=== PATIENT | male | born 1985 | race Caucasian/White ===

== ENCOUNTER 2018-12-02 12:04 | Emergency (ER) | payer OTHER ==
[2018-12-02] MEDS ORDERED: BUPIVACAINE 0.5% PF 10 ML VIAL SUBQ STA (12:55)
--- NOTE | 2018-12-02 13:38 | ED Physician Documentation ---
PD HPI UPPER EXT INJURY - Stated complaint Stated Complaint: LT HAND LAC - Chief complaint Chief Complaint: Laceration - History obtained from History obtained from: Patient - History of Present Illness Location: Left, Finger (index finger) Type of injury: Other (chainsaw vs fiinger at work) Where injury occurred: Work Timing - onset: How many hours ago (1) Timing - duration: Hours (1) Timing - details: Abrupt onset Pain level max: 10 Pain level now: 10 Improved by: Rest, Ice, Immobilization Worsened by: Moving, Palpating Associated symptoms: Swelling. No: Weakness, Numbness, Tingling Contributing factors: No: Anticoagulated Similar symptoms before: Has not had sx before Recently seen: Not recently seen - Additonal information Additional information: Td 2017. pt is right handed Review of Systems Constitutional: denies: Fever, Chills Respiratory: denies: Cough GI: denies: Vomiting, Diarrhea Skin: denies: Rash Musculoskeletal: denies: Neck pain, Back pain Neurologic: denies: Headache PD PAST MEDICAL HISTORY - Past Medical History Past Medical History: Yes Respiratory: Asthma - Past Surgical History Past Surgical History: Yes Ortho: ACL reconstruction, Shoulder arthroplasty - Present Medications Home Medications: Ambulatory Orders Medication Instructions Recorded Confirmed Clindamycin HCl [Clindamycin 300MG 300 mg PO Q6H #28 capsule 12/02/18 CAP] - Allergies Allergies/Adverse Reactions: Allergies Allergy/AdvReac Type Severity Reaction Status Date / Time amoxicillin [Amoxicillin] Allergy Mild Rash Verified 12/02/18 12:12 fluticasone propionate * Allergy Mild Rash Verified 12/02/18 12:12 [From Advair Diskus] Penicillins Allergy Mild Rash Verified 12/02/18 12:12 salmeterol xinafoate * Allergy Mild Rash Verified 12/02/18 12:12 [From Advair Diskus] sulfamethoxazole Allergy Unknown Verified 12/02/18 12:12 [From Bactrim] trimethoprim [From Bactrim] Allergy Unknown Verified 12/02/18 12:12 - Social History Does the pt smoke?: Yes Smoking Status: Current every day smoker Does the pt drink ETOH?: Yes Does the pt have substance abuse?: No - Immunizations Immunizations are current?: Yes - POLST Patient has POLST: No PD ED PE NORMAL - Vitals Vital signs reviewed: Yes - General General: Alert and oriented X 3, No acute distress, Well developed/nourished - HEENT HEENT: PERRL, Moist mucous membranes - Neck Neck: Supple, no meningeal sign - Cardiac Cardiac: RRR, Strong equal pulses - Derm Derm: Warm and dry - Extremities Extremities: Other (L index finger laceration over dorsum of prox phalanx. NVI. 1cm x3cm area of missing skin. tendon intact.) - Neuro Neuro: Alert and oriented X 3 - Psych Psych: Normal mood, Normal affect Results - Vitals Vitals: Vital Signs - 24 hr 12/02/18 12/02/18 12:10 15:26 Temperature 37.1 C 36.6 C Heart Rate 79 94 Respiratory 18 18 Rate Blood Pressure 149/94 H 140/100 H O2 Saturation 98 99 Oxygen O2 Source Room air - Rads (name of study) L finger xray Radiology: Prelim report reviewed, EMP read contemporaneously, See rad report (Negative left index finger. ) PD MEDICAL DECISION MAKING - ED course Complexity details: reviewed results, re-evaluated patient, considered differential, d/w patient, d/w family ED course: 33-year-old male with what is essentially a deep abrasion to the dorsal aspect of the proximal phalanx of the left first digit. There is no skin to suture together. We will allow this to heal by secondary intention. The wound was irrigated with 750 mL's of NS. Tendon is intact. Antibiotic ointment placed, nonstick dressing and tube gauze. We will have him follow-up with his doctor in 3 days for wound check. Will place on antibiotics as well. Tetanus is up-to-date. Warnings of infection and instructions on wound care given at bedside. Also counseled on how to minimize scarring. Patient counseled regarding signs and symptoms for which I believe and urgent re-evaluation would be necessary. Patient with good understanding of and agreement to plan and is comfortable going home at this time This document was made in part using voice recognition software. While efforts are made to proofread this document, sound alike and grammatical errors may occur. Departure - Departure Disposition: 01 Home, Self Care Clinical Impression: Finger laceration Qualifiers: Encounter type: initial encounter Finger: index finger Damage to nail status: without damage Foreign body presence: without foreign body Laterality: left Qualified Code(s): S61.211A - Laceration without foreign body of left index finger without damage to nail, initial encounter Condition: Good Instructions: ED Laceration Hand Follow-Up: your,doctor in 3 days for wound check [Other] Prescriptions: Clindamycin HCl [Clindamycin 300MG CAP] 300 mg PO Q6H #28 capsule Comments: Return if you worsen. Take all antibiotics until gone. Return if you develop redness, swelling, or drainage from the wound. Keep the wound clean. Discharge Date/Time: 12/02/18 15:31
--- NOTE | 2018-12-02 14:25 | XRAY Report ---
Reason: L index finger vs chainsaw Procedure Date: 12/02/2018 Accession Number: [id number] / [id number] Procedure: XR - Finger(s) LT CPT Code: FULL RESULT: EXAM: LEFT INDEX DIGIT RADIOGRAPHY EXAM DATE: 12/02/2018 01:51 PM. CLINICAL HISTORY: L index finger vs chainsaw. COMPARISON: None available. TECHNIQUE: 3 views. FINDINGS: Bones: Normal. No fracture or bone lesion. Joints: Normal. No subluxations. Soft Tissues: No radiopaque foreign bodies. IMPRESSION: Negative left index finger. RADIA
[2018-12-02] MEDS ORDERED: BACITRACIN OINT TOP STA (15:01)
[2018-12-02] MEDS ORDERED: CLINDAMYCIN 150 MG CAPSULE PO STA (15:02)
[2018-12-02 15:27] VITALS: BP 140/100
== END 2018-12-02 15:31 | disposition home or self-care (01) ==
LOC: ED 12:04
DX: S61.211A Laceration without foreign body of left index finger without damage to nail, initial encounter (principal); S60.411A Abrasion of left index finger, initial encounter; W29.3XXA Contact with powered garden and outdoor hand tools and machinery, initial encounter; Y99.0 Civilian activity done for income or pay; F17.200 Nicotine dependence, unspecified, uncomplicated
CPT/HCPCS: 73140; 99283; A9270

== ENCOUNTER 2019-05-30 13:02 | Outpatient (CLI) | payer MEDICAID | END 2019-05-30 13:03 | disposition critical access hospital (66) | LOC: EMS 13:02 | PROVIDERS: ATTEND Surgery | DX: R55 Syncope and collapse (principal); R53.1 Weakness | CPT/HCPCS: A0425; A0429; A0999 ==

== ENCOUNTER 2019-05-30 13:21 | Inpatient (IN) | payer MEDICAID ==
--- NOTE | 2019-05-30 13:36 | ED Physician Documentation ---
PD HPI SYNCOPE - Stated complaint Stated Complaint: SYNCOPE - Chief complaint Chief Complaint: Neuro - History obtained from History obtained from: Patient, EMS (34-year-old gentleman presents by ambulance for syncopal episode. He is quite somnolent so history is limited. Reportedly had a syncopal episode and was helped to the ground without injury and was unconscious for about a minute. This was may be 6 hours after using some methamphetamines which he smokes, never injects, "needles are garbage" he says.) Review of Systems Unable to obtain: AMS PD PAST MEDICAL HISTORY - Past Medical History Respiratory: Asthma - Past Surgical History Past Surgical History: Yes Ortho: ACL reconstruction, Shoulder arthroplasty - Present Medications Home Medications: Ambulatory Orders Medication Instructions Recorded Confirmed Clindamycin HCl [Clindamycin 300MG 300 mg PO Q6H #28 capsule 12/02/18 CAP] - Allergies Allergies/Adverse Reactions: Allergies Allergy/AdvReac Type Severity Reaction Status Date / Time amoxicillin [Amoxicillin] Allergy Mild Rash Verified 05/30/19 13:30 fluticasone propionate * Allergy Mild Rash Verified 05/30/19 13:30 [From Advair Diskus] Penicillins Allergy Mild Rash Verified 05/30/19 13:30 salmeterol xinafoate * Allergy Mild Rash Verified 05/30/19 13:30 [From Advair Diskus] sulfamethoxazole Allergy Unknown Verified 05/30/19 13:30 [From Bactrim] trimethoprim [From Bactrim] Allergy Unknown Verified 05/30/19 13:30 - Social History Does the pt smoke?: Yes Smoking Status: Current every day smoker Does the pt drink ETOH?: Yes Does the pt have substance abuse?: No - Immunizations Immunizations are current?: Yes - POLST Patient has POLST: No PD ED PE NORMAL - Vitals Vital signs reviewed: Yes - General General: Other (Quite somnolent, does not arouse to voice, basically have to shake him to wake him up.) - HEENT HEENT: Other (Small pupils) - Neck Neck: Supple, no meningeal sign, No bony TTP - Cardiac Cardiac: Other (Tachycardic but regular without murmur) - Respiratory Respiratory: No respiratory distress, Clear bilaterally - Extremities Extremities: Other (The right leg is quite swollen and tender, it seems to be emanating from a abrasion or little trauma on the anterior tamayo. He has multiple picked at wounds. The major joints seem to have painless full range of motion. The right leg is quite warm.) - Neuro Eye Opening: To Pain Motor: Obeys Commands Verbal: Confused GCS Score: 12 Results - Vitals Vitals: Vital Signs - 24 hr 05/30/19 05/30/19 05/30/19 13:24 14:08 16:00 Temperature 38.2 C H Heart Rate 109 H 103 H 75 Respiratory 18 15 16 Rate Blood Pressure 142/74 H 121/63 123/68 O2 Saturation 95 96 98 Oxygen O2 Source Room air - EKG (time done) 1400 Rate: Rate (enter#) (107) Rhythm: Sinus tachycardia [place]: Normal Intervals: Normal MI QRS: Normal Ischemia: Normal ST segments Computer interpretation: Agree with computer - Labs Labs: Laboratory Tests 05/30/19 05/30/19 05/30/19 13:50 13:50 13:50 WBC 13.2 H RBC 3.90 L Hgb 11.8 L Hct 36.8 L MCV 94.4 H MCH 30.3 MCHC 32.1 RDW 12.7 Plt Count 262 MPV 7.9 Neut # (Auto) 10.4 H Lymph # (Auto) 1.4 L [place] # (Auto) 1.3 H Eos # (Auto) 0.1 Baso # (Auto) 0.0 Absolute Nucleated RBC 0.00 Nucleated RBC % 0.0 Sodium 138 Potassium 3.2 L Chloride 101 Carbon Dioxide 28 Anion Gap 9.0 BUN 11 Creatinine 0.7 Estimated GFR (MDRD) 130 Glucose 121 H Lactic Acid Calcium 8.4 L Total Bilirubin 1.3 H AST 11 ALT 14 Alkaline Phosphatase 74 Total Creatine Kinase 125 Troponin I High Sens 2.6 Total Protein 6.4 L Albumin 3.0 L Globulin 3.4 Albumin/Globulin Ratio 0.9 L Lipase 21 L Salicylates < 6.0 Acetaminophen < 10 L Ethyl Alcohol < 5.0 05/30/19 13:50 WBC RBC Hgb Hct MCV MCH MCHC RDW Plt Count MPV Neut # (Auto) Lymph # (Auto) [place] # (Auto) Eos # (Auto) Baso # (Auto) Absolute Nucleated RBC Nucleated RBC % Sodium Potassium Chloride Carbon Dioxide Anion Gap BUN Creatinine Estimated GFR (MDRD) Glucose Lactic Acid 0.8 Calcium Total Bilirubin AST ALT Alkaline Phosphatase Total Creatine Kinase Troponin I High Sens Total Protein Albumin Globulin Albumin/Globulin Ratio Lipase Salicylates Acetaminophen Ethyl Alcohol - Rads (name of study) CT Heade Radiology: EMP read contemporaneously (normal) CTA Chest Radiology: EMP read contemporaneously (small pulm nodule, NAD) RLE DVT sono Radiology: EMP read contemporaneously (popliteal DVT) PD MEDICAL DECISION MAKING - ED course ED course: 34-year-old gentleman presents after syncopal episode associated with drug use. He may be just coming down off of something but has quite a swollen red right leg with a fever. Does not seem like a septic joint. PE/DVT and cellulitis are both considered though. Unlikely to be endocarditis as he says he does not inject and I do not see any track michaud per se. He does have a lot of pick that little lesions. DVT is present on the right leg ultrasound. PE is negative. Head CT was negative he remained quite altered throughout his ED stay and I spoke with Dr. Flores for admission at 4:24 PM. Vancomycin was given after blood cultures for right lower extremity cellulitis and he received Lovenox for the DVT. Departure - Departure Disposition: [address] [facility] DC/Xfer Clinical Impression: Cellulitis of right leg, Methamphetamine use Fever Qualifiers: Fever type: unspecified Qualified Code(s): R50.9 - Fever, unspecified Right leg DVT Qualifiers: Affected thrombotic vein of extremity: peroneal Chronicity: acute Qualified Code(s): I82.451 - Acute embolism and thrombosis of right peroneal vein Altered mental status Qualifiers: Altered mental status type: delirium Qualified Code(s): R41.0 - Disorientation, unspecified Condition: Serious
[2019-05-30] MEDS ORDERED: IOVERSOL 320 100 ML VIAL IVP ONE ×2 (13:57→15:33)
[2019-05-30 14:06] LABS: BASOPHILS % (AUTO) 0.3 %; EOSINOPHILS # (AUTO) 0.1 10^3/uL (0.0-0.7); EOSINOPHILS % (AUTO) 0.8 %; HGB - HEMOGLOBIN 11.8 g/dL (14.0-18.0); LYMPHOCYTES # (AUTO) 1.4 10^3/uL (1.5-3.5); LYMPHOCYTES % (AUTO) 10.4 %; MEAN CORPUSCULAR HEMOGLOBIN 30.3 pg (27.0-31.0); MEAN CORPUSCULAR HGB CONC 32.1 g/dL (32.0-36.0); MEAN CORPUSCULAR VOLUME 94.4 fL (80.0-94.0); MEAN PLATELET VOLUME 7.9 fL (7.4-11.4); MONOCYTES # (AUTO) 1.3 10^3/uL (0.0-1.0); MONOCYTES % (AUTO) 9.5 %; NEUTROPHILS # (AUTO) 10.4 10^3/uL (1.5-6.6); NEUTROPHILS % (AUTO) 78.6 %; PLT - PLATELET COUNT 262 10^3/uL (130-450); RED CELL DISTRIBUTION WIDTH 12.7 % (12.0-15.0); WHITE BLOOD COUNT 13.2 x10^3/uL (4.8-10.8)
[2019-05-30 14:22] LABS: ACETAMINOPHEN < 10 ug/mL (10-30); ALBUMIN/GLOBULIN RATIO 0.9 (1.0-2.2); ALKALINE PHOSPHATASE 74 IU/L (42-121); ALT ALANINE AMINOTRANSFERASE 14 IU/L (10-60); AST ASPARTATE AMINOTRANSFERASE 11 IU/L (10-42); BILIRUBIN,TOTAL 1.3 mg/dL (0.2-1.0); BUN - BLOOD UREA NITROGEN 11 mg/dL (6-20); CALCIUM 8.4 mg/dL (8.5-10.3); CARBON DIOXIDE - CO2 28 mmol/L (21-32); CHLORIDE 101 mmol/L (101-111); CK- CREATINE KINASE 125 IU/L (22-269); CREATININE 0.7 mg/dL (0.6-1.2); GFR - MDRD 130 (>89); GLUCOSE 121 mg/dL (70-100); LIPASE 21 U/L (22-51); SALICYLATE < 6.0 mg/dL; SODIUM 138 mmol/L (135-145); TOTAL PROTEIN 6.4 g/dL (6.7-8.2)
--- NOTE | 2019-05-30 15:02 | CT Report ---
Reason: altered Procedure Date: 05/30/2019 Accession Number: [id number] / [id number] Procedure: CT - HEAD WO CPT Code: FULL RESULT: EXAM: CT HEAD EXAM DATE: 05/30/2019 02:53 PM. CLINICAL HISTORY: Altered. COMPARISON: None available. TECHNIQUE: Multiaxial CT images were obtained from the foramen magnum to the vertex. Reformats: Sagittal and coronal. IV contrast: None. In accordance with CT protocol optimization, one or more of the following dose reduction techniques were utilized for this exam: automated exposure control, adjustment of mA and/or KV based on patient size, or use of iterative reconstructive technique. FINDINGS: Parenchyma: No acute intraparenchymal hemorrhage. No evidence of midline shift. Cheney-white differentiation is distinct. Extraaxial Spaces: No subdural or epidural collections identified. Ventricles: Normal in size. Sinuses and Orbits: Imaged paranasal sinuses, orbits, and mastoids show no significant abnormality. Bones: No evidence of fracture or calvarial defect. Other: None. IMPRESSION: No acute intracranial findings. RADIA
--- NOTE | 2019-05-30 15:19 | CT Report ---
Reason: syncope Procedure Date: 05/30/2019 Accession Number: [id number] / [id number] Procedure: CT - ANGIO CHEST W/WO CPT Code: FULL RESULT: EXAM: CT ANGIOGRAM CHEST EXAM DATE: 05/30/2019 02:53 PM. CLINICAL HISTORY: Syncope. COMPARISON: None. TECHNIQUE: Routine helical imaging was performed through the chest in the pulmonary arterial phase. IV Contrast: OPTI 320 70ML. Reconstructions: Coronal 3-D MIP reconstructions.Sagittal and coronal. In accordance with CT protocol optimization, one o r more of the following dose reduction techniques were utilized for this exam: automated exposure control, adjustment of mA and/or KV based on patient size, or use of iterative reconstructive technique. FINDINGS: Pulmonary Arteries: Diagnostic quality: Adequate through to segmental arteries. There is some patient motion artifact at the lung bases. No evidence for acute or chronic pulmonary emboli. RV/LV is within normal limits. There is no interventricular septal bowing. There is no reflux of contrast material in the IVC. Lungs/Pleura: No consolidation or edema. No effusions or pneumothorax. Dependent bilateral lower lobe atelectasis. 3 mm lateral right upper lobe lung nodule series 5 image 43. There are a couple of tiny 2-3 mm perifissural nodules along the left major fissure. Mediastinum: Normal. No cardiac enlargement or adenopathy. Thoracic Aorta: Unremarkable. Upper Abdomen: Unremarkable. Other: Posterior right rib deformities from remote trauma with several fixation plates. IMPRESSION: 1. Normal pulmonary CT angiogram. No pulmonary emboli. 2. Tiny 3 mm right upper lobe lung nodule. RADIA
[2019-05-30] MEDS ORDERED: VANCOMYCIN INJ 2 GM in SODIUM CHLORIDE 0.9% 500 ML IV STA (16:07)
--- NOTE | 2019-05-30 16:10 | Ultrasound Report ---
Reason: leg swelling Procedure Date: 05/30/2019 Accession Number: [id number] / [id number] Procedure: US - Duplex Ext Veins Right CPT Code: FULL RESULT: EXAM: RIGHT LOWER EXTREMITY VENOUS ULTRASOUND EXAM DATE: 05/30/2019 03:44 PM. CLINICAL HISTORY: Leg swelling. COMPARISON: CHEST ANGIO 05/30/2019 2:45 PM. TECHNIQUE: Real-time sonographic vascular imaging was performed by the photo producer through the lower extremity utilizing both color-flow and Doppler spectral analysis. Multiple containers sales representative static images were saved for review. FINDINGS: Common Femoral Vein (CFV): Normal. CFV-GSV Junction: Normal. Profunda Femoral Vein (PFV): Normal. Femoral Vein (FV) Prox: Normal. Femoral Vein (FV) Mid: Normal. Femoral Vein (FV) Dist: Normal. Popliteal Vein: Normal. Posterior Tibial Veins: Normal. Peroneal Veins: Absence of flow in the inferior peroneal veins. Other: None. IMPRESSION: 1. Deep venous thrombosis in the inferior right peroneal veins and lower calf. Other lower extremity deep veins are patent without thrombus. ADRIANEA The critical result notification system was initiated by Dr. Zain Holliday at 04:09 PM on 05/30/2019. ADDENDUM: 05/30/19 16:11 The above critical result findings were discussed with German Watts by Dr. Zain Holliday at 04:11 PM on 05/30/2019.
[2019-05-30] MEDS ORDERED: ENOXAPARIN 100 MG/ML SYRINGE SUBQ STA (16:11)
[2019-05-30] MEDS ORDERED: PROCHLORPERAZINE 10 MG/2 ML VIAL IVP PRN (16:25)
[2019-05-30] MEDS ORDERED: SODIUM CHLORIDE FLUSH 0.9% 10 ML SYRINGE IVP PRN (16:25)
[2019-05-30] MEDS ORDERED: VANCOMYCIN PER PHARMACY 100 GM in SODIUM CHLORIDE 0.9% 250 ML IV SCH (17:00)
[2019-05-30 18:43] LABS: MUDS CUTOFF CONCENTRATIONS CUTOFF CONC BELOW:
[2019-05-30] MEDS: DEXTROSE 5%-0.9% NACL 1,000 ML IV SCH (18:49)
[2019-05-30] MEDS: SODIUM CHLORIDE FLUSH 0.9% 10 ML SYRINGE IVP SCH (18:53)
[2019-05-30 18:58] LABS: AMPHETAMINE SCREEN,URINE POSITIVE (NEGATIVE); BENZODIAZEPINES SCREEN, URINE NEGATIVE (NEGATIVE); COCAINE SCREEN URINE NEGATIVE (NEGATIVE); METHADONE SCREEN, URINE NEGATIVE (NEGATIVE); METHAMPHETAMINES SCREEN, URINE POSITIVE (NEGATIVE); OPIATE SCREEN, URINE POSITIVE (NEGATIVE); OXYCODONE SCREEN, URINE NEGATIVE (NEGATIVE); PROPOXYPHENE SCREEN, URINE NEGATIVE (NEGATIVE); TRICYCLIC ANTIDEPRESSANT,URINE NEGATIVE (NEGATIVE)
--- NOTE | 2019-05-30 19:12 | HISTORY & PHYSICAL EXAMINATION ---
DATE OF SERVICE: 05/30/2019 Physician: Daria Flores MD HISTORY OF PRESENT ILLNESS: This is a 34-year-old white male with a history of drug abuse, methamphetamine is what he admits to. He otherwise has a negative past medical history and takes no medications. Patient presented by ambulance after it was called because of a witnessed syncopal episode. The details are not available since the ambulance run sheet is not available, but the ER got the report that he "was helped to the ground without injury and was unconscious for about a minute". Patient was intermittent communicative in the ER and reported that he uses methamphetamine by smoking and snorting it, last time was 6 hours ago, but never uses IV drugs. He has never been admitted here before, only seen for a laceration in the past. PAST MEDICAL HISTORY 1. Possibly asthma. 2. Shoulder arthroplasty. 3. ACL reconstruction. MEDICATIONS: None. ALLERGIES 1. AMOXICILLIN 2. ADVAIR DISKUS. 3. PENICILLIN. 4. BACTRIM. SOCIAL HISTORY: Patient is a smoker of half pack a day, does drink alcohol, but the details are not known, does have substance abuse history and admits to methamphetamine, but other drugs are not known yet. His living situation is unknown. REVIEW OF SYSTEMS: A comprehensive review of systems was performed by chart review and obtaining brief answers from the patient. The pertinent positives are listed, the rest are negative. FAMILY HISTORY: No inherited diseases. PHYSICAL EXAMINATION GENERAL: White male who is obtunded and lethargic and difficult to arouse. VITAL SIGNS: Blood pressure 130/90, heart rate 90 to 100 in sinus rhythm, temperature 38.2, and on repeat 38.7C, respiratory rate 14, O2 saturation 99% on room air. HEENT: Facial bruise and scabs noted. NECK: Without JVD. There is no nuchal rigidity. HEART: Normal heart sounds. CHEST: Clear. ABDOMEN: Soft, positive bowel sounds. No tenderness. EXTREMITIES: The right lower extremity, at the calf, has very minimal swelling and redness and warmth and is tender to touch. There are no open wounds. There are diffuse scabs of upper and lower extremities. NEUROLOGIC: Obtunded, but moving and speaking spontaneously. LABORATORY DATA: Sodium 138, potassium 3.2, BUN 11, creatinine 0.7. Lactic acid 0.8. Normal liver tests except bilirubin 1.3, HS Troponin 2.6. Lipase normal. White blood count elevated at 13.2 with a left shift, hemoglobin 11.8, platelet count 262. Serum toxicology did not report any salicylates, Tylenol or ethyl alcohol. No INR was done. A MUDS screen is still pending. EKG: Sinus tachycardia at a rate of 107 and otherwise within normal limits. Head CT: unremarkable R leg Doppler: (+) DVT CTA: No PE. IMPRESSION/Diagnoses: 1. Altered mental status, likely related to meth withdrawal and fever/infection. 2. Cellulitis of the right leg. 3. DVT of the right leg. 4. Drug abuse (Meth) 5. Rash, consistent with chronic meth use. PLAN: Obtain a MUDS screen to establish his drug abuse. Start IV fluids since he has a fever and is unable to actively take p.o. liquids. Obtain neuro checks every 2 hours, since we don not know if his obtundation may worsen, since the reason is not clear. Consider a CIAZ protocol. This is a potential altered mental status from meth withdrawal; therefore, once he is lucid, a social work consult is planned for resources for drug abuse management. Start therapeutic Lovenox doses q.12 hours and eventually transition to an oral anticoagulant. Begin IV vancomycin after blood cultures are done. The course of treatment will be determined by results of blood tests and his response to antibiotics. DEEP VENOUS THROMBOSIS PROPHYLAXIS: Pharmaceutical. CODE STATUS: FULL CODE. ATTESTATION: Patient is expected to be discharged or transferred to another facility within 96 hours: Yes. TD: 05/30/2019 18:55 [facility]
[2019-05-30] MEDS: ACETAMINOPHEN 325 MG TABLET PO PRN (20:17)
[2019-05-30] MEDS: FAMOTIDINE 20 MG/2 ML VIAL IVP SCH (20:18)
[2019-05-30] MEDS ORDERED: POTASSIUM CHLORIDE 20 MEQ TABLET PO ONE (23:07)
[2019-05-31] MEDS: VANCOMYCIN INJ 1.5 GM in SODIUM CHLORIDE 0.9% 500 ML IV SCH ×3 (00:30→17:27)
[2019-05-31] MEDS: SODIUM CHLORIDE FLUSH 0.9% 10 ML SYRINGE IVP SCH ×3 (00:30→17:28)
[2019-05-31] MEDS ORDERED: ENOXAPARIN 80 MG/0.8 ML SYRINGE SUBQ SCH (05:00)
[2019-05-31] MEDS ORDERED: ENOXAPARIN 100 MG/ML SYRINGE SUBQ ONE (05:15)
[2019-05-31 05:43] LABS: BASOPHILS % (AUTO) 0.5 %; EOSINOPHILS # (AUTO) 0.1 10^3/uL (0.0-0.7); EOSINOPHILS % (AUTO) 0.7 %; HGB - HEMOGLOBIN 12.7 g/dL (14.0-18.0); LYMPHOCYTES % (AUTO) 11.5 %; MEAN CORPUSCULAR HEMOGLOBIN 31.1 pg (27.0-31.0); MEAN CORPUSCULAR HGB CONC 32.6 g/dL (32.0-36.0); MEAN CORPUSCULAR VOLUME 95.3 fL (80.0-94.0); MEAN PLATELET VOLUME 8.5 fL (7.4-11.4); MONOCYTES # (AUTO) 0.8 10^3/uL (0.0-1.0); MONOCYTES % (AUTO) 9.3 %; NEUTROPHILS # (AUTO) 6.9 10^3/uL (1.5-6.6); NEUTROPHILS % (AUTO) 77.4 %; PLT - PLATELET COUNT 263 10^3/uL (130-450); RED BLOOD COUNT 4.08 10^6/uL (4.70-6.10); RED CELL DISTRIBUTION WIDTH 12.8 % (12.0-15.0); WHITE BLOOD COUNT 8.8 x10^3/uL (4.8-10.8)
[2019-05-31 05:49] LABS: ALBUMIN 2.9 g/dL (3.2-5.5); ALBUMIN/GLOBULIN RATIO 0.9 (1.0-2.2); BILIRUBIN,TOTAL 1.6 mg/dL (0.2-1.0); CALCIUM 8.6 mg/dL (8.5-10.3); CREATININE 0.6 mg/dL (0.6-1.2); MAGNESIUM 2.2 mg/dL (1.7-2.8); TOTAL PROTEIN 6.3 g/dL (6.7-8.2)
[2019-05-31] MEDS: NEUTRA-PHOS 250 MG TABLET PO SCH ×2 (06:26→08:38)
[2019-05-31] MEDS: DEXTROSE 5%-0.9% NACL 1,000 ML IV SCH (06:26)
[2019-05-31] MEDS: FAMOTIDINE 20 MG/2 ML VIAL IVP SCH ×2 (08:38→22:03)
--- NOTE | 2019-05-31 08:41 | PROVIDER PROGRESS NOTE ---
Assessment/Plan - Problem List (1) Altered mental status Qualifiers: Altered mental status type: delirium Qualified Code(s): R41.0 - Disorientation, unspecified Assessment/Plan: He is awakening today, and verbalizing. He was likely obtunded from the infection plus withdrawal from Meth use. Will transfer out of ICU to [facility] bed today. Advance diet. Continue neuro checks until fully awake and back to baseline. (2) Cellulitis of right leg Assessment/Plan: Blood cultures were sent from ER, results are still pending, but neg to aura. Continue empiric iv Vanco. (3) Right leg DVT Qualifiers: Affected thrombotic vein of extremity: peroneal Chronicity: acute Qualified Code(s): I82.451 - Acute embolism and thrombosis of right peroneal vein Assessment/Plan: He is on therapeutic Lovenox dose and will decide which oral anticoagulation to use, after discussing with the patient, once he is more lucid. There was no PE, by CTA at the time of admission. (4) Methamphetamine use Assessment/Plan: The MUDS screen was (+) for Meth and Opiates. The serum toxicology result at admission was neg for alcohol. SW consult planned for drug abuse management, after he is more lucid to participate in discussion with SW. (5) MRSA (methicillin resistant Staphylococcus aureus) carrier Assessment/Plan: His nares swab was (+) for MRSA and isolation precautions have been ordered. (6) Rash and nonspecific skin eruption Assessment/Plan: Presumed to be Meth rash, that he picks at. - Current Meds Current Meds: Current Medications Generic Name Dose Route Start Last Admin Trade Name Freq PRN Reason Stop Dose Admin Acetaminophen 650 mg 05/30/19 16:25 05/30/19 20:17 Tylenol PO 650 mg Q4HR PRN Administration Pain 1 to 4 Enoxaparin Sodium 85 mg 05/31/19 05:00 05/31/19 05:09 Lovenox SUBQ 85 mg Q12H BALDOMERO Administration Famotidine 20 mg 05/30/19 21:00 05/30/19 20:18 Pepcid IVP 20 mg BID BALDOMERO Administration Dextrose/Sodium Chloride 1,000 mls @ 100 mls/hr 05/30/19 17:00 05/31/19 06:26 D5ns IV 100 mls/hr .Q10H BALDOMERO Administration Vancomycin HCl 100 gm/ Sodium 250 mls @ 167 mls/hr 05/30/19 17:00 05/30/19 18:53 Chloride IV Not Given Q400H BALDOMERO Vancomycin HCl 1.5 gm/ Sodium 500 mls @ 250 mls/hr 05/31/19 01:00 05/31/19 03:01 Chloride IV Infused Q8H BALDOMERO Infusion Sodium Chloride 10 ml 05/30/19 17:00 05/31/19 00:30 Normal Saline Flush 0.9% IVP Not Given 0100,0900,1700 BALDOMERO - Lab Result Fish Bone Diagrams: 05/31/19 04:50 05/31/19 04:50 - Additional Planning My Orders: My Active Orders 05/30/19 16:25 Activity Orders [RC] Q2HR Daily Weight [RC] 0600 IO [RC] Q1HR IV Insert [RC] ONCE Initiate Bowel Care Protocol [RC] QSHIFT Initiate Flu Vaccine Screening [RC] ONCE Initiate ICU Electrolyte Prot. [RC] .protocol Initiate Line Care Protocol [RC] .protocol Initiate Personal Care Protoco [RC] .protocol Initiate Pneumonia Vaccine Scr [RC] ONCE Vital Signs [RC] Q4HR Acetaminophen [Tylenol] 650 mg PO Q4HR PRN HYDROmorphone INJ SYRINGE [Dilaudid Inj Syringe] 1 mg IVP Q2H PRN Prochlorperazine Inj [Compazine Inj] 10 mg IVP Q6HR PRN Sodium Chloride Flush 0.9% [Normal Saline Flush 0.9%] 10 ml IVP PRN PRN Code Status [OTHERS] Routine Condition of Patient [OTHERS] Routine DVT Prophylaxis [OTHERS] Routine 05/30/19 16:28 Oral Care - Nursing [RC] Routine 05/30/19 16:29 Oxygen Therapy [RC] .PRN 05/30/19 16:31 Initiate Line Care Protocol [RC] QSHIFT 05/30/19 16:33 Neuro Check [RC] Q2-4H 05/30/19 17:00 Dextrose 5%-0.9% NaCl [D5ns] 1,000 ml IV 100 mls/hr Sodium Chloride Flush 0.9% [Normal Saline Flush 0.9%] 10 ml IVP 0100,0900,1700 Vancomycin Per Pharmacy [Vancomycin-Pharmacy To Dose] 100 gm Sodium Chloride 0.9% [Normal Saline 0.9%] 250 ml IV Q400H 05/30/19 17:50 Straight Catheter Insertion [RC] ONCE 05/30/19 18:20 CUL, URINE [RM] Routine 05/30/19 21:00 Famotidine [Pepcid] 20 mg IVP BID 05/31/19 Social Work Consult [CONS] Routine 05/31/19 01:00 Vancomycin Inj [Vancomycin] 1.5 gm Sodium Chloride 0.9% [Normal Saline 0.9%] 500 ml IV Q8H 05/31/19 05:00 Enoxaparin [Lovenox] 85 mg SUBQ Q12H 05/31/19 08:00 Echo Transthoracic Complete [ECHO] Routine 05/31/19 08:08 Transfer [Admit \ Transfer \ Status] [RC] .ONCE 05/31/19 08:09 Telemetry- [RC] Q4HR 05/31/19 09:00 Polyethylene Glycol 3350 [Miralax] 17 gm PO DAILY PRN 05/31/19 Breakfast DIET [Regular Diet] [DIET] 06/01/19 05:00 CBC - COMP BLD CT W/AUTO DIFF [HEME] DAILYLAB COMPREHENSIVE METABOLIC PANEL [CHEM] DAILYLAB 06/02/19 05:00 CBC - COMP BLD CT W/AUTO DIFF [HEME] DAILYLAB COMPREHENSIVE METABOLIC PANEL [CHEM] DAILYLAB Subjective - Subjective Patient Reports: Resting Comfortably Objective Vital Signs: Vital Signs - 24 hr 05/30/19 05/30/19 05/30/19 13:24 14:08 16:00 Temperature 38.2 C H Heart Rate 109 H 103 H 75 Heart Rate [ Monitoring electrodes] Respiratory 18 15 16 Rate Blood Pressure 142/74 H 121/63 123/68 Blood Pressure [Right Brachial artery] O2 Saturation 95 96 98 05/30/19 05/30/19 05/30/19 17:41 17:55 17:58 Temperature Heart Rate 93 88 90 Heart Rate [ Monitoring electrodes] Respiratory 17 10 L 14 Rate Blood Pressure 118/72 Blood Pressure [Right Brachial artery] O2 Saturation 99 05/30/19 05/30/19 05/30/19 17:59 18:00 18:05 Temperature 38.7 C H Heart Rate 96 94 98 Heart Rate [ Monitoring electrodes] Respiratory 14 14 16 Rate Blood Pressure 129/83 H 129/93 H Blood Pressure [Right Brachial artery] O2 Saturation 100 05/30/19 05/30/19 05/30/19 18:10 18:31 18:35 Temperature Heart Rate 96 95 92 Heart Rate [ Monitoring electrodes] Respiratory 18 21 20 Rate Blood Pressure Blood Pressure [Right Brachial artery] O2 Saturation 05/30/19 05/30/19 05/30/19 18:40 18:41 18:45 Temperature Heart Rate 93 92 91 Heart Rate [ 94 Monitoring electrodes] Respiratory 20 20 16 Rate Blood Pressure 123/73 Blood Pressure 123/73 [Right Brachial artery] O2 Saturation 99 05/30/19 05/30/19 05/30/19 18:50 18:55 19:00 Temperature Heart Rate 93 90 93 Heart Rate [ 91 Monitoring electrodes] Respiratory 24 20 20 Rate Blood Pressure Blood Pressure 117/73 [Right Brachial artery] O2 Saturation 99 05/30/19 05/30/19 05/30/19 19:01 19:05 19:10 Temperature Heart Rate 88 93 93 Heart Rate [ Monitoring electrodes] Respiratory 23 20 19 Rate Blood Pressure 117/73 Blood Pressure [Right Brachial artery] O2 Saturation 05/30/19 05/30/19 05/30/19 19:15 19:20 19:25 Temperature Heart Rate 92 88 93 Heart Rate [ Monitoring electrodes] Respiratory 23 19 22 Rate Blood Pressure Blood Pressure [Right Brachial artery] O2 Saturation 05/30/19 05/30/19 05/30/19 19:30 19:31 19:35 Temperature Heart Rate 93 93 96 Heart Rate [ Monitoring electrodes] Respiratory 23 22 23 Rate Blood Pressure 111/70 Blood Pressure [Right Brachial artery] O2 Saturation 05/30/19 05/30/19 05/30/19 19:40 19:45 19:50 Temperature Heart Rate 96 97 93 Heart Rate [ Monitoring electrodes] Respiratory 22 22 21 Rate Blood Pressure Blood Pressure [Right Brachial artery] O2 Saturation 05/30/19 05/30/19 05/30/19 19:55 20:00 20:01 Temperature Heart Rate 89 89 94 Heart Rate [ Monitoring electrodes] Respiratory 18 18 22 Rate Blood Pressure 124/70 Blood Pressure [Right Brachial artery] O2 Saturation 05/30/19 05/30/19 05/30/19 20:05 20:10 20:15 Temperature Heart Rate 92 93 90 Heart Rate [ Monitoring electrodes] Respiratory 22 18 20 Rate Blood Pressure Blood Pressure [Right Brachial artery] O2 Saturation 05/30/19 05/30/19 05/30/19 20:16 20:20 20:25 Temperature 38.8 C H Heart Rate 94 90 Heart Rate [ 91 Monitoring electrodes] Respiratory 20 22 15 Rate Blood Pressure Blood Pressure [Right Brachial artery] O2 Saturation 97 05/30/19 05/30/19 05/30/19 20:30 20:31 20:35 Temperature Heart Rate 93 93 94 Heart Rate [ Monitoring electrodes] Respiratory 21 23 24 Rate Blood Pressure 124/80 Blood Pressure [Right Brachial artery] O2 Saturation 05/30/19 05/30/19 05/30/19 20:40 20:45 20:50 Temperature Heart Rate 92 92 105 H Heart Rate [ Monitoring electrodes] Respiratory 21 18 23 Rate Blood Pressure Blood Pressure [Right Brachial artery] O2 Saturation 05/30/19 05/30/19 05/30/19 20:55 21:00 21:01 Temperature Heart Rate 94 96 97 Heart Rate [ 97 Monitoring electrodes] Respiratory 21 25 H 22 Rate Blood Pressure 114/75 Blood Pressure 114/75 [Right Brachial artery] O2 Saturation 100 05/30/19 05/30/19 05/30/19 21:05 21:10 21:15 Temperature Heart Rate 96 98 91 Heart Rate [ Monitoring electrodes] Respiratory 20 24 17 Rate Blood Pressure Blood Pressure [Right Brachial artery] O2 Saturation 05/30/19 05/30/19 05/30/19 21:20 21:25 21:30 Temperature Heart Rate 92 100 88 Heart Rate [ Monitoring electrodes] Respiratory 19 21 18 Rate Blood Pressure Blood Pressure [Right Brachial artery] O2 Saturation 05/30/19 05/30/19 05/30/19 21:31 23:00 23:05 Temperature Heart Rate 90 80 Heart Rate [ 79 Monitoring electrodes] Respiratory 19 17 18 Rate Blood Pressure 123/79 Blood Pressure 122/83 H [Right Brachial artery] O2 Saturation 100 05/30/19 05/30/19 05/30/19 23:10 23:15 23:20 Temperature Heart Rate 85 81 85 Heart Rate [ Monitoring electrodes] Respiratory 17 18 22 Rate Blood Pressure Blood Pressure [Right Brachial artery] O2 Saturation 05/30/19 05/30/19 05/30/19 23:25 23:30 23:32 Temperature 37.5 C Heart Rate 82 79 Heart Rate [ 79 Monitoring electrodes] Respiratory 19 18 17 Rate Blood Pressure Blood Pressure [Right Brachial artery] O2 Saturation 99 05/30/19 05/30/19 05/30/19 23:35 23:40 23:45 Temperature Heart Rate 82 82 82 Heart Rate [ Monitoring electrodes] Respiratory 18 19 18 Rate Blood Pressure Blood Pressure [Right Brachial artery] O2 Saturation 05/30/19 05/30/19 05/31/19 23:50 23:55 00:00 Temperature Heart Rate 81 88 77 Heart Rate [ 78 Monitoring electrodes] Respiratory 18 18 17 Rate Blood Pressure Blood Pressure 102/61 [Right Brachial artery] O2 Saturation 100 05/31/19 05/31/19 05/31/19 00:01 00:05 00:10 Temperature Heart Rate 80 74 82 Heart Rate [ Monitoring electrodes] Respiratory 16 16 20 Rate Blood Pressure 102/61 Blood Pressure [Right Brachial artery] O2 Saturation 05/31/19 05/31/19 05/31/19 00:15 00:20 00:25 Temperature Heart Rate 79 79 75 Heart Rate [ Monitoring electrodes] Respiratory 21 23 20 Rate Blood Pressure Blood Pressure [Right Brachial artery] O2 Saturation 05/31/19 05/31/19 05/31/19 00:30 00:35 00:40 Temperature Heart Rate 84 83 78 Heart Rate [ Monitoring electrodes] Respiratory 16 22 12 Rate Blood Pressure Blood Pressure [Right Brachial artery] O2 Saturation 05/31/19 05/31/19 05/31/19 00:41 00:45 00:50 Temperature 37.6 C H Heart Rate 76 84 Heart Rate [ 82 Monitoring electrodes] Respiratory 11 L 15 19 Rate Blood Pressure Blood Pressure [Right Brachial artery] O2 Saturation 100 05/31/19 05/31/19 05/31/19 00:55 01:00 01:01 Temperature Heart Rate 82 74 77 Heart Rate [ 79 Monitoring electrodes] Respiratory 20 16 19 Rate Blood Pressure 116/69 Blood Pressure 116/69 [Right Brachial artery] O2 Saturation 100 05/31/19 05/31/19 05/31/19 01:05 01:10 01:15 Temperature Heart Rate 80 82 84 Heart Rate [ Monitoring electrodes] Respiratory 19 22 23 Rate Blood Pressure Blood Pressure [Right Brachial artery] O2 Saturation 05/31/19 05/31/19 05/31/19 01:20 01:25 01:30 Temperature Heart Rate 84 88 83 Heart Rate [ Monitoring electrodes] Respiratory 23 20 20 Rate Blood Pressure Blood Pressure [Right Brachial artery] O2 Saturation 05/31/19 05/31/19 05/31/19 01:35 01:40 01:45 Temperature Heart Rate 86 79 82 Heart Rate [ Monitoring electrodes] Respiratory 21 21 23 Rate Blood Pressure Blood Pressure [Right Brachial artery] O2 Saturation 05/31/19 05/31/19 05/31/19 01:50 01:55 02:00 Temperature Heart Rate 102 H 79 78 Heart Rate [ 81 Monitoring electrodes] Respiratory 19 21 21 Rate Blood Pressure Blood Pressure 122/85 H [Right Brachial artery] O2 Saturation 100 05/31/19 05/31/19 05/31/19 02:01 02:05 02:10 Temperature Heart Rate 82 81 85 Heart Rate [ Monitoring electrodes] Respiratory 23 19 18 Rate Blood Pressure 122/85 H Blood Pressure [Right Brachial artery] O2 Saturation 05/31/19 05/31/19 05/31/19 02:15 02:20 02:25 Temperature Heart Rate 94 81 83 Heart Rate [ Monitoring electrodes] Respiratory 19 22 16 Rate Blood Pressure Blood Pressure [Right Brachial artery] O2 Saturation 05/31/19 05/31/19 05/31/19 02:30 02:35 02:40 Temperature Heart Rate 85 78 81 Heart Rate [ Monitoring electrodes] Respiratory 24 21 25 H Rate Blood Pressure Blood Pressure [Right Brachial artery] O2 Saturation 05/31/19 05/31/19 05/31/19 02:45 02:50 02:55 Temperature Heart Rate 82 84 83 Heart Rate [ Monitoring electrodes] Respiratory 24 26 H 27 H Rate Blood Pressure Blood Pressure [Right Brachial artery] O2 Saturation 05/31/19 05/31/19 05/31/19 03:00 03:01 03:05 Temperature Heart Rate 85 100 83 Heart Rate [ 82 Monitoring electrodes] Respiratory 26 H 17 25 H Rate Blood Pressure 122/83 H Blood Pressure 122/83 H [Right Brachial artery] O2 Saturation 98 05/31/19 05/31/19 05/31/19 03:10 03:15 03:20 Temperature Heart Rate 83 80 84 Heart Rate [ Monitoring electrodes] Respiratory 21 21 18 Rate Blood Pressure Blood Pressure [Right Brachial artery] O2 Saturation 05/31/19 05/31/19 05/31/19 03:25 03:30 03:35 Temperature Heart Rate 79 86 78 Heart Rate [ Monitoring electrodes] Respiratory 20 18 20 Rate Blood Pressure Blood Pressure [Right Brachial artery] O2 Saturation 05/31/19 05/31/19 05/31/19 03:40 03:45 03:50 Temperature Heart Rate 78 80 78 Heart Rate [ Monitoring electrodes] Respiratory 21 23 25 H Rate Blood Pressure Blood Pressure [Right Brachial artery] O2 Saturation 05/31/19 05/31/19 05/31/19 03:55 04:00 04:01 Temperature 37.1 C Heart Rate 85 79 82 Heart Rate [ 84 Monitoring electrodes] Respiratory 22 23 24 Rate Blood Pressure 103/69 Blood Pressure 103/69 [Right Brachial artery] O2 Saturation 99 05/31/19 05/31/19 05/31/19 04:05 04:10 04:15 Temperature Heart Rate 86 78 84 Heart Rate [ Monitoring electrodes] Respiratory 27 H 27 H 27 H Rate Blood Pressure Blood Pressure [Right Brachial artery] O2 Saturation 05/31/19 05/31/19 05/31/19 04:20 04:25 04:30 Temperature Heart Rate 78 86 80 Heart Rate [ Monitoring electrodes] Respiratory 21 26 H 19 Rate Blood Pressure Blood Pressure [Right Brachial artery] O2 Saturation 05/31/19 05/31/19 05/31/19 04:35 04:40 04:45 Temperature Heart Rate 94 78 77 Heart Rate [ Monitoring electrodes] Respiratory 15 26 H 23 Rate Blood Pressure Blood Pressure [Right Brachial artery] O2 Saturation 05/31/19 05/31/19 05/31/19 04:50 04:55 05:00 Temperature Heart Rate 85 88 83 Heart Rate [ 83 Monitoring electrodes] Respiratory 17 23 22 Rate Blood Pressure Blood Pressure 105/75 [Right Brachial artery] O2 Saturation 99 05/31/19 05/31/19 05/31/19 05:01 06:03 07:00 Temperature Heart Rate 87 Heart Rate [ 83 83 Monitoring electrodes] Respiratory 22 25 H 20 Rate Blood Pressure 105/75 Blood Pressure 108/75 130/73 [Right Brachial artery] O2 Saturation 99 100 05/31/19 08:14 Temperature 37.2 C Heart Rate Heart Rate [ 86 Monitoring electrodes] Respiratory 30 H Rate Blood Pressure Blood Pressure 123/84 H [Right Brachial artery] O2 Saturation 100 Oxygen O2 Source Room air I&O (Last 24 Hrs): Intake and Output Totals x24h 05/29/19 05/30/19 05/31/19 23:59 23:59 23:59 Intake Total 600 2150 Output Total 2100 3225 Balance -1500 -1075 General: Other (Lethargic but atrousable) HEENT: Mucous membr. moist/pink, Other (Bruise around R eye) Neck: Supple, No JVD Neuro: Non Focal, Other (Sleepy) Cardiovascular: Regular rate, No murmurs Respiratory: No respiratory distress Abdomen: Soft Extremities: Other (Mild swelling R calf, diffuse rash of body) - Results Results: Laboratory Results WBC 8.8 x10^3/uL (4.8-10.8) 05/31/19 04:50 RBC 4.08 10^6/uL (4.70-6.10) L 05/31/19 04:50 Hgb 12.7 g/dL (14.0-18.0) L 05/31/19 04:50 Hct 38.9 % (42.0-52.0) L 05/31/19 04:50 MCV 95.3 fL (80.0-94.0) H 05/31/19 04:50 MCH 31.1 pg (27.0-31.0) H 05/31/19 04:50 MCHC 32.6 g/dL (32.0-36.0) 05/31/19 04:50 RDW 12.8 % (12.0-15.0) 05/31/19 04:50 Plt Count 263 10^3/uL (130-450) 05/31/19 04:50 MPV 8.5 fL (7.4-11.4) 05/31/19 04:50 Neut # (Auto) 6.9 10^3/uL (1.5-6.6) H 05/31/19 04:50 Lymph # (Auto) 1.0 10^3/uL (1.5-3.5) L 05/31/19 04:50 [place] # (Auto) 0.8 10^3/uL (0.0-1.0) 05/31/19 04:50 Eos # (Auto) 0.1 10^3/uL (0.0-0.7) 05/31/19 04:50 Baso # (Auto) 0.0 10^3/uL (0.0-0.1) 05/31/19 04:50 Absolute Nucleated RBC 0.00 x10^3/uL 05/31/19 04:50 Nucleated RBC % 0.0 /100WBC 05/31/19 04:50 Sodium 142 mmol/L (135-145) 05/31/19 04:50 Potassium 3.6 mmol/L (3.5-5.0) 05/31/19 04:50 Chloride 107 mmol/L (101-111) 05/31/19 04:50 Carbon Dioxide 28 mmol/L (21-32) 05/31/19 04:50 Anion Gap 7.0 (6-13) 05/31/19 04:50 BUN 7 mg/dL (6-20) 05/31/19 04:50 Creatinine 0.6 mg/dL (0.6-1.2) 05/31/19 04:50 Estimated GFR (MDRD) 155 (>89) 05/31/19 04:50 Glucose 134 mg/dL (70-100) H 05/31/19 04:50 Lactic Acid 0.8 mmol/L (0.5-2.2) 05/30/19 13:50 Calcium 8.6 mg/dL (8.5-10.3) 05/31/19 04:50 Phosphorus 2.0 mg/dL (2.5-4.6) L 05/31/19 04:50 Magnesium 2.2 mg/dL (1.7-2.8) 05/31/19 04:50 Total Bilirubin 1.6 mg/dL (0.2-1.0) H 05/31/19 04:50 AST 15 IU/L (10-42) 05/31/19 04:50 ALT 14 IU/L (10-60) 05/31/19 04:50 Alkaline Phosphatase 68 IU/L (42-121) 05/31/19 04:50 Total Creatine Kinase 125 IU/L (22-269) 05/30/19 13:50 Troponin I High Sens 2.6 pg/mL (2.3-19.7) 05/30/19 13:50 Total Protein 6.3 g/dL (6.7-8.2) L 05/31/19 04:50 Albumin 2.9 g/dL (3.2-5.5) L 05/31/19 04:50 Globulin 3.4 g/dL (2.1-4.2) 05/31/19 04:50 Albumin/Globulin Ratio 0.9 (1.0-2.2) L 05/31/19 04:50 Lipase 21 U/L (22-51) L 05/30/19 13:50 Nasal Screen MRSA (PCR) POSITIVE (NEGATIVE) A* 05/30/19 18:20 Salicylates < 6.0 mg/dL 05/30/19 13:50 Urine Opiates Screen POSITIVE (NEGATIVE) H 05/30/19 18:20 Ur Oxycodone Screen NEGATIVE (NEGATIVE) 05/30/19 18:20 Urine Methadone Screen NEGATIVE (NEGATIVE) 05/30/19 18:20 Ur Propoxyphene Screen NEGATIVE (NEGATIVE) 05/30/19 18:20 Acetaminophen < 10 ug/mL (10-30) L 05/30/19 13:50 Ur Barbiturates Screen NEGATIVE (NEGATIVE) 05/30/19 18:20 Ur Tricyclics Screen NEGATIVE (NEGATIVE) 05/30/19 18:20 Ur Phencyclidine Scrn NEGATIVE (NEGATIVE) 05/30/19 18:20 Ur Amphetamine Screen POSITIVE (NEGATIVE) H 05/30/19 18:20 U Methamphetamines Scrn POSITIVE (NEGATIVE) H 05/30/19 18:20 U Benzodiazepines Scrn NEGATIVE (NEGATIVE) 05/30/19 18:20 Urine Cocaine Screen NEGATIVE (NEGATIVE) 05/30/19 18:20 U Cannabinoids Screen NEGATIVE (NEGATIVE) 05/30/19 18:20 Ethyl Alcohol < 5.0 mg/dL 05/30/19 13:50
[2019-05-31] MEDS ORDERED: POLYETHYLENE GLYCOL 3350 17 GM PACKET PO PRN (09:00)
[2019-05-31] MEDS: HYDROmorphone 0.5 MG/0.5 ML SYRINGE IVP PRN (11:28)
[2019-05-31 16:53] LABS: VANCOMYCIN,TROUGH 9.4 ug/mL (10.0-20.0)
[2019-05-31] MEDS: ENOXAPARIN 80 MG/0.8 ML SYRINGE SUBQ SCH (17:28)
[2019-05-31] MEDS: ACETAMINOPHEN 325 MG TABLET PO PRN (17:35)
[2019-06-01] MEDS: SODIUM CHLORIDE FLUSH 0.9% 10 ML SYRINGE IVP SCH ×2 (00:44→08:44)
[2019-06-01] MEDS: DEXTROSE 5%-0.9% NACL 1,000 ML IV SCH ×2 (00:44→02:40)
[2019-06-01] MEDS: VANCOMYCIN INJ 1.5 GM in SODIUM CHLORIDE 0.9% 500 ML IV SCH ×2 (00:44→08:44)
[2019-06-01] MEDS: HYDROmorphone 0.5 MG/0.5 ML SYRINGE IVP PRN ×4 (00:45→11:13)
[2019-06-01] MEDS: ACETAMINOPHEN 325 MG TABLET PO PRN (00:45)
[2019-06-01 05:01] LABS: BASOPHILS # (AUTO) 0.1 10^3/uL (0.0-0.1); BASOPHILS % (AUTO) 0.6 %; EOSINOPHILS # (AUTO) 0.1 10^3/uL (0.0-0.7); EOSINOPHILS % (AUTO) 0.8 %; HGB - HEMOGLOBIN 12.4 g/dL (14.0-18.0); LYMPHOCYTES # (AUTO) 1.3 10^3/uL (1.5-3.5); LYMPHOCYTES % (AUTO) 14.6 %; MEAN CORPUSCULAR HEMOGLOBIN 29.2 pg (27.0-31.0); MEAN CORPUSCULAR HGB CONC 31.5 g/dL (32.0-36.0); MEAN CORPUSCULAR VOLUME 92.9 fL (80.0-94.0); MEAN PLATELET VOLUME 8.1 fL (7.4-11.4); MONOCYTES # (AUTO) 1.1 10^3/uL (0.0-1.0); MONOCYTES % (AUTO) 11.9 %; NEUTROPHILS # (AUTO) 6.5 10^3/uL (1.5-6.6); NEUTROPHILS % (AUTO) 71.8 %; PLT - PLATELET COUNT 251 10^3/uL (130-450); RED BLOOD COUNT 4.24 10^6/uL (4.70-6.10); RED CELL DISTRIBUTION WIDTH 13.1 % (12.0-15.0); WHITE BLOOD COUNT 9.1 x10^3/uL (4.8-10.8)
[2019-06-01] MEDS: ENOXAPARIN 80 MG/0.8 ML SYRINGE SUBQ SCH (05:06)
[2019-06-01 05:20] LABS: ALBUMIN 2.8 g/dL (3.2-5.5); ALBUMIN/GLOBULIN RATIO 0.8 (1.0-2.2); BILIRUBIN,TOTAL 0.6 mg/dL (0.2-1.0); CALCIUM 8.1 mg/dL (8.5-10.3); CREATININE 0.5 mg/dL (0.6-1.2); TOTAL PROTEIN 6.3 g/dL (6.7-8.2)
[2019-06-01] MEDS: FAMOTIDINE 20 MG/2 ML VIAL IVP SCH (08:44)
[2019-06-01] MEDS ORDERED: HYDROmorphone 1 MG/ML CARPUJECT IVP PRN (12:27)
--- NOTE | 2019-06-01 13:22 | Discharge Plan ---
Discharge Plan Problem Reviewed?: Yes Disposition: Home, Self Care Condition: Stable Prescriptions: Apixaban [Eliquis] 5 mg PO BID #74 tablet Clindamycin [Cleocin] 600 mg PO BID #56 capsule oxyCODONE [Roxicodone] 10 mg PO Q6H PRN #18 tablet PRN Reason: Pain Diet: Regular Activity Restrictions: No Restrictions Instruction Topics: Clindamycin capsules, Apixaban oral tablets, DVT, DVT Complications, Cellulitis Dc Health Concerns: Admitted in withdrawal and with infection and clot of right tamayo. Plan of Treatment: Take antibiotics for 7 more days (Clindamycin twice a day). Take Eliquis 10 mg twice a day for a week, then 5 mg twice a day for 11 weeks. See your provider for pain management. Care Goals: Resolution of leg infection and clot, and prevent clot going to chest. Assessment: The patient understands and agrees with the plan. Additional Instructions or Follow Up instructions: You need a primary care provider to refill the blood thinner prescription for 2 more months, since this prescription is only for the first month ! No Smoking: If you smoke, Please STOP! Call for help.
[2019-06-01 13:49] VITALS: BP 119/77
[2019-06-01] MEDS ORDERED: CLINDAMYCIN 150 MG CAPSULE PO SCH ×2 (14:00)
[2019-06-01] MEDS ORDERED: APIXABAN 5 MG TABLET PO SCH (17:00)
--- NOTE | 2019-06-08 09:24 | DISCHARGE SUMMARY ---
Discharge Summary Admit Date: 05/30/19 Discharge Date: 06/01/19 Discharging Provider: Dr Daria Flores Condition at Discharge: Stable Discharge Disposition: 01 Home, Self Care - DIAGNOSES Admission Diagnoses: 1) Altered mental status 2) Cellulitis of R leg 3) DVT of R leg 4) Drug abuse (Meth) 5) Rash, consistent with chronic Meth use Discharge Diagnoses with Status of Each Condition: See below - HPI History of Present Illness: This is a 34 y/o WM with a history of drug abuse, he admitted to using Meth in the ER. He was brought to the ER by ambulance after a witnessed syncope, where he was "helped to the ground without injury". He was intermittently awake enough in the ER to report that he snorts and smokes Meth and does not use iv drugs. He was found to have BP 130/90, HR 90-100, a urine drug screen positive for Meth and opiates, a swollen, red an warm R calf and tamayo, fever of 38.2 C, elevated WBC of 13.2 with a left shift, and he had imaging which showed: CT of head was unremarkable, R leg Doppler was positive for DVT and a CTA was negative for pulmonary embolism. He was admitted to the ICU for close neurologic checks and treatment of the DVT and infection. - HOSPITAL COURSE Hospital Course: (1) Altered mental status He started awakening the following day and verbalizing. He was obtunded from the infection plus withdrawal from Meth use. He could not remember the events surrounding the syncopal episode. (2) Cellulitis of right leg Blood cultures were sent from ER, and were neg to date. He was put on empiric iv Vancomyscin for 2 days, then transitioned to oral Clindamycin to finish a 10 day total course. The anterior mid-tamayo had a localized small red area that was bandaged. (3) Right leg DVT He was on therapeutic Lovenox doses bid, then when awake and lucid, he was offered various treatment regimens. He was discharged on Eliquis and strongly advised to get a PCP for follow-up and to get refills of his medications. (4) Methamphetamine use The MUDS screen was (+) for Meth and Opiates. The serum toxicology result at admission was neg for alcohol. SW consult saw him for drug abuse management, after he is more lucid to participate in discussion. (5) MRSA (methicillin resistant Staphylococcus aureus) carrier His nares swab was (+) for MRSA and isolation precautions were followed. (6) Rash and nonspecific skin eruption A diffuse rash of small erosions, that were scabbed, was seen on his trunk and extremities.This was presumed to be a Meth rash, and he described that he "picks at it". - ALLERGIES Allergies/Adverse Reactions: Allergies Allergy/AdvReac Type Severity Reaction Status Date / Time amoxicillin [Amoxicillin] Allergy Mild Rash Verified 05/30/19 13:30 fluticasone propionate * Allergy Mild Rash Verified 05/30/19 13:30 [From Advair Diskus] Penicillins Allergy Mild Rash Verified 05/30/19 13:30 salmeterol xinafoate * Allergy Mild Rash Verified 05/30/19 13:30 [From Advair Diskus] sulfamethoxazole Allergy Unknown Verified 05/30/19 13:30 [From Bactrim] trimethoprim [From Bactrim] Allergy Unknown Verified 05/30/19 13:30 - MEDICATIONS Home Medications: Ambulatory Orders Medication Instructions Recorded Confirmed Apixaban [Eliquis] 5 mg PO BID #74 tablet 06/01/19 Clindamycin [Cleocin] 600 mg PO BID #56 capsule 06/01/19 oxyCODONE [Roxicodone] 10 mg PO Q6H PRN #18 tablet 06/01/19 - PHYSICAL EXAM AT DISCHARGE General Appearance: positive: No acute distress, Alert Eyes Bilateral: positive: Normal inspection ENT: positive: ENT inspection nml Neck: positive: Nml inspection, No JVD, Other (Supple) Respiratory: positive: No respiratory distress, Breath sounds nml Cardiovascular: positive: Regular rate & rhythm, No murmur Abdomen: positive: Non-tender, No distention Skin: positive: Other (Diffuse body rash, excoriated, a bandage is over R mid- tamayo.) Neurologic/Psychiatric: positive: Oriented x3, Other (Non-focal, grossly normal) - LABS Result Diagrams: 06/01/19 04:35 06/01/19 04:35 - DIAGNOSTIC IMAGING Diagnostic Imaging Results: Final report reviewed - FOLLOW UP Follow Up: He was advised that he needs a PCP, to have hospital follow-up in a week, and for refills of the Eliquis for 2 more mos. - TIME SPENT Time Spent in Discharge (Minutes): 30
== END 2019-06-01 13:58 | disposition home or self-care (01) | DRG 603 ==
LOC: EDUNIT# → ED 13:21 → ICU 16:25 → MS2 05-31 11:23
PROVIDERS: ADMIT Internal Medicine; ATTEND Internal Medicine
DX: L03.115 Cellulitis of right lower limb (principal); F15.23 Other stimulant dependence with withdrawal; I82.451 Acute embolism and thrombosis of right peroneal vein; R41.0 Disorientation, unspecified; R55 Syncope and collapse; T43.621A Poisoning by amphetamines, accidental (unintentional), initial encounter; L27.0 Generalized skin eruption due to drugs and medicaments taken internally; S80.811A Abrasion, right lower leg, initial encounter; X58.XXXA Exposure to other specified factors, initial encounter; F17.210 Nicotine dependence, cigarettes, uncomplicated; Z22.322 Carrier or suspected carrier of Methicillin resistant Staphylococcus aureus
CPT/HCPCS: 36415; 70450; 71275; 80053; 80202; 80306; 80307; 80320; 80329; 82550; 83605; 83690; 83735; 84100; 84484; 85025; 87040; 87086; 87150; 93005; 93971; 99281; 99285; A9270; J1170; J1650; J3370; Q9967